=== PATIENT | female | born 1985 | race Caucasian/White ===

== ENCOUNTER 2018-07-20 09:02 | Emergency (ER) | payer MEDICAID, SELFPAY ==
[2018-07-20 09:03] VITALS: BP 151/106; PULSE 83; RESP 16; TEMP 36.4; O2SAT 100; BMI 34.1
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
[2018-07-20 09:52] LABS: Amphetamine Urine VISTA NEGATIVE (<1000 ng/mL); Barbiturate Urine VISTA NEGATIVE (< 200 ng/mL); Benzodiazepine Urine VISTA NEGATIVE (< 200 ng/mL); Cocaine Urine VISTA NEGATIVE (< 300 ng/mL); Ecstacy Urine VISTA POSITIVE (< 500 ng/mL); Methadone Urine VISTA NEGATIVE (< 300 ng/mL); PCP Urine VISTA NEGATIVE (< 25 ng/mL); THC Urine VISTA POSITIVE (< 50 ng/mL); Vista UDS pH Range 5
[2018-07-20 09:54] LABS: Absolute Lymphocyte Count 1.94 X10^3/ul (0.83-4.51); Absolute Neutrophil Count 8.3 X10^3/uL (2.0-7.7); Basophil# 0.03 X10^3/uL; Basophil% 0.3 % (0-1); Eosinophil# 0.19 X10^3/uL; Eosinophils% 1.6 % (0-5); Hematocrit 42.7 % (37-47); Hemoglobin 14.2 g/dl (12.0-15.0); Lymphocyte # 1.94 X10^3/ul (4.0); Lymphocyte % 16.7 % (19-41); Mean Corp Hgb Conc 33.3 g/gl (32-36); Mean Corpuscular Hgb 28.4 pg (27.0-32.0); Mean Corpuscular Volume 85.4 fL (81-99); Mean Platelet Vol. 11.2 fl (6.2-12.0); Monocyte# 1.14 X10^3/uL; Monocyte% 9.8 % (0-10); Neutrophil # 8.27 X10^3/uL (2.7-7.7); Neutrophil % 71.3 % (47-70); POSITIVE COUNT NO; POSITIVE DIFFERENTIAL NO; POSITIVE MORPHOLOGY NO; Platelet Count 263 K/mm3 (150-450); RBC Distribution Width CV 13.1 % (11.6-14.6); RBC Distribution Width SD 39.8 fl (35.1-43.9); White Blood Count 11.6 K/mm3 (4.4-11.0)
[2018-07-20 10:07] LABS: Anion Gap 7 (5-15); BUN 9 mg/dL (7-18); BUN/Creat Ratio 11.5 RATIO (10-20); Calcium,Total 9.1 mg/dL (8.5-10.1); Chloride 105 mmol/L (98-107); Creatinine, Serum 0.78 mg/dL (0.55-1.02); EST Glomerular Filtration Rate 89 mL/min (>60); Est Glom Filt Rate - Afr Amer 108 mL/min (>60); Estimated Creatinine Clearance 87.76 ml/min; Glucose 118 mg/dL (74-106); Potassium 3.5 mmol/L (3.5-5.1); Sodium Level 139 mmol/L (136-145)
[2018-07-20 10:22] LABS: Internal QC Validated? YES +Cl - CLEAR BKGD; Pregnancy, Serum, hCG Quali. NEGATIVE Negative
--- NOTE | 2018-07-20 10:30 | ED.RN ---
JOHN WAS CALLED WITH CRISIS; SHE IS AWARE THAT THE PT NEEDS TO BE SEEN
--- NOTE | 2018-07-20 10:44 | ED.RN ---
PER DR. CALDERON REQUEST, PT BELONGINGS WERE OBTAINED FOR THE PURPOSES OF CHECKING GIFT CARDS FOR EVIDENCE THAT PIN NUMBERS WERE SCRATCHED OFF. PER PT, THE CARDS WERE SCRATCHED UNDER DURESS AND PIN NUMBERS GIVEN TO UNKNOWN PERSON. WITH SECURITY ELAINA, PRESENT, CARDS WERE OBTAINED FROM PT BELONGINGS. EIGHT CARDS FOR [employer] WERE FOUND WITH RECEIPTS FOR PURCHASES OF THE GIFT CARDS DATED 07/18/18. GIFT CARDS WERE PURCHASED FROM [employer], WITH SIX CARDS PURCHASED FOR A VALUE OF $500. THERE WERE TWO ADDITIONAL RECEIPTS THAT APPEARED TO CONTAIN PURCHASES FOR APPROXIMATELY $200 AND APPROXIMATELY $10. IT IS UNCLEAR IF THE PURCHASES WERE FOR THE CARDS OR IF PURCHASES WERE MADE USING THE CARDS. DR. CALDERON WAS INFORMED OF INFORMATION AND DR. CALDERON REQUESTED THAT ANY [employer] BE CALLED FOR POSSIBLE FRAUD. ELAINA IN [place] [employer] WAS NOTIFIED OF THE REQUEST.
--- NOTE | 2018-07-20 10:45 | ED.RN ---
PTS PREPACKEGED HOME MEDS SHOW THAT LAST TIMES MEDS WERE POSSIBLY TAKEN WERE JULY 15 MORNING MEDS. UPDATED MED LISTT ACCORDING TO THE MEDS LISTED. PHYSICIAN AWARE AND MEDS FOR TODAY WERE GIVEN FROM THE PACKAGING PER DR CALDERON REQUEST.
--- NOTE | 2018-07-20 11:18 | ED.RN ---
JOHN WITH CRISIS WILL BE HERE SHORTLY TO SEE THE PT
[2018-07-20 13:03] VITALS: BP 136/91; PULSE 84; RESP 16; O2SAT 98
[2018-07-20 13:49] VITALS: BP 136/91; PULSE 84; RESP 16; O2SAT 97
== END 2018-07-20 14:00 | disposition home or self-care (01) ==
PROVIDERS: Emergency Provider Emergency Medicine; Family Provider Student in an Organized Health Care Education/Training Program; PCP Student in an Organized Health Care Education/Training Program
DX: F31.9 Bipolar disorder, unspecified (principal); F25.0 Schizoaffective disorder, bipolar type; F60.3 Borderline personality disorder; S60.221A Contusion of right hand, initial encounter; W22.8XXA Striking against or struck by other objects, initial encounter; Y93.9 Activity, unspecified; Y92.9 Unspecified place or not applicable; F32.9 Major depressive disorder, single episode, unspecified; F41.9 Anxiety disorder, unspecified; Z91.5 Personal history of self-harm; Z79.899 Other long term (current) drug therapy; F17.200 Nicotine dependence, unspecified, uncomplicated
CPT/HCPCS: 36415; 80048; 80307; 80320; 84703; 85025; 99285; A4216; G0480

== ENCOUNTER 2018-08-13 16:06 | Emergency (ER) | payer MEDICAID, SELFPAY ==
[2018-08-13 16:06] VITALS: BP 149/72; PULSE 98; RESP 18; TEMP 36.6; O2SAT 98; BMI 31.7
--- NOTE | 2018-08-13 16:10 | RAD_ITS ---
STUDY: X-RAY - RIGHT HAND REASON FOR EXAM: Female, 32 years old. Pain of the fifth digit after getting caught in dog collar TECHNIQUE: 3 view(s) of the hand. COMPARISON: None. FINDINGS: Normal radiocarpal articulation. Normal distal radioulnar joint. Normal visualized carpal bones. Normal carpal articulations Normal carpometacarpal articulation of the thumb. Normal second through fifth carpometacarpal joints. Normal metacarpi. Normal metacarpophalangeal joint of the thumb. Normal interphalangeal joint of the thumb. Normal proximal and distal phalanges of the thumb. Normal metacarpophalangeal joints of the second through fifth fingers. Normal proximal and distal interphalangeal joints of the second through fifth fingers. Normal phalanges of the second through fifth fingers. The soft tissue structures are unremarkable. RAD/Hand Min 3 Views IMPRESSION: No fracture or malalignment. Electronically Signed: Leon Chin MD at 16:39 EDT , Service support ,
--- NOTE | 2018-08-13 17:19 | ED.DCSUM_ITS ---
History of Present Illness Chief Complaint: Upper Extremity Injury Informant: Patient Occurred: Today Mechanism/Context: Injury Current Severity: 05/29 Maximum Severity: 12/29 Worsened by: Touch or movement Relieved by: Nothing Associated Symptoms: Negative for: Parasthesia, Weakness, Loss of Funtion Narrative: Patient is a 32-year-old hirwl-olyc-zcehuing woman who presents with injury to her right little finger. Her finger got caught in dog collar. She is uncertain exactly how she injured it. She denies paresthesia, anesthesia motors. She is reluctant to move it because of pain. Tetanus Immunization: 5-10 years Prior similar symptoms: No Recent Illness/Hospitalization: No - Past Medical History (1) Bipolar affective disorder, current episode depressed Status: Acute (2) Schizoaffective disorder, bipolar type Status: Acute Past Medical History - Allergies and Home Meds Allergies/Adverse Reactions: Allergies haloperidol lactate [From Haldol] Allergy (Verified 08/13/18 16:08) Unknown lurasidone HCl [From Latuda] Allergy (Verified 08/13/18 16:08) Itching aripiprazole [From Abilify] Adverse Reaction (Verified 08/13/18 16:08) Other hydrocodone bitartrate [From Vicodin] Adverse Reaction (Verified 08/13/18 16:08) Other morphine Adverse Reaction (Verified 08/13/18 16:08) Vomiting olanzapine [From Zyprexa] Adverse Reaction (Verified 08/13/18 16:08) Other Primary Care Physician: Sunil Houston DO [Primary Care Provider] - Prior records reviewed: Yes Surgical History: noncontributory Lives: With Family Smoking Status: Former smoker Alcohol: None Review of Systems Musculoskeletal: Reports: Extremity Pain - Right little finger. Denies: Myalgias, Arthralgias, Neck pain, Back pain, Swelling Skin: Denies: Rash, Abrasions, Wounds Neurological: Denies: Weakness, Parasthesia, Numbness Hematologic: Denies: Easy bruising, Easy bleeding Physical Exam Vital Signs/Narrative: Vital Signs Temp Pulse Resp BP Pulse Ox 08/13/18 16:06 97.8 F 98 18 149/72 H 98 Right Wrist: Negative for: Abrasion, Contusion, Deformity, Edema, Hematoma, Limited ROM, - Right Hand: Negative for: Abrasion, Contusion, Deformity, Edema, Hematoma, Limited ROM, - Left Finger: Limited ROM - Secondary to pain the extensor minimize tendon is intact. The flexor digitorum superficialis and flexor digitorum profundus are intact. Capillary refill is normal. Sensation is normal. There is a small 5% subungual hematoma noted. There is no laxity of the collateral ligaments with stressing.. Negative for: Abrasion, Contusion, Deformity, Edema, Hematoma General: Well nourished, Well developed, Obese Head: Normocephalic, Atraumatic Eyes: Perrl, EOMI. Negative for: Pale conjunctiva, Scleral icterus, - ENT: No Trauma, Moist Mucous Membranes Cardiovascular: Regular rate, Regular rhythm, No murmurs, Normal S1, Normal S2 Respiratory: No distress Neurological: Alert, Oriented x3, Cranial nerves II-XII grossly intact, Normal Strength, Normal Sensation Psychological: Depressed Diagnostic/Tx/Re-eval Three-view x-ray of the hand was obtained. There is no evidence of fracture, subluxation or dislocation. No foreign bodies noted. - Medical Decision Making We will obtain x-ray to evaluate for fracture since patient is reluctant to move her digit and there is evidence of trauma. ED Disposition - Plan for ED Patient: Disposition: Home or Assisted Living Diagnosis: Subungual hematoma of right little finger, Strain of right little finger Instructions: ED Hematoma Subungual, ED Sprain Finger Prescriptions: Naproxen [Naprosyn] 500 mg PO BID #14 tablet Referrals: Sunil Houston DO [Primary Care Provider] - Additional Instructions: Your prescription was electronically transmitted to [facility] located on [facility].
== END 2018-08-13 17:40 | disposition home or self-care (01) ==
PROVIDERS: Emergency Provider Emergency Medicine; Family Provider Student in an Organized Health Care Education/Training Program; PCP Student in an Organized Health Care Education/Training Program
DX: S60.151A Contusion of right little finger with damage to nail, initial encounter (principal); S69.91XA Unspecified injury of right wrist, hand and finger(s), initial encounter; W23.0XXA Caught, crushed, jammed, or pinched between moving objects, initial encounter; Y93.9 Activity, unspecified; Y92.9 Unspecified place or not applicable; F31.9 Bipolar disorder, unspecified; F25.0 Schizoaffective disorder, bipolar type; Z79.899 Other long term (current) drug therapy; Z87.891 Personal history of nicotine dependence
CPT/HCPCS: 73130; 99283